=== PATIENT | male | born 1970 ===

== ENCOUNTER 2020-03-26 01:14 | Emergency (ER) | payer SELFPAY ==
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
[2020-03-26 01:28] VITALS: BP 155/105; PULSE 95; TEMP 98.2; BMI 31.3
[2020-03-26] MEDS ORDERED: NAPROXEN 500 MG TABLET PO ONE (02:17)
[2020-03-26] MEDS ORDERED: NAPROXEN 500 MG TABLET ONE (02:20)
== END 2020-03-26 02:31 | disposition home or self-care (01) ==
LOC: FER 01:14
DX: S52.124A Nondisplaced fracture of head of right radius, initial encounter for closed fracture (principal); V18.0XXA Pedal cycle driver injured in noncollision transport accident in nontraffic accident, initial encounter
CPT/HCPCS: 73070-TC-RT-FY; 73110-TC-RT-FY; 99284-25